=== PATIENT | female | born 1930 | race Caucasian/White ===

== ENCOUNTER → 2018-08-22 | Outpatient (CLI) | payer MEDICARE, OTHER ==
[2018-08-22 19:58] LABS: CALCIUM LEVEL 8.9 MG/DL (8.8-10.2); CREATININE FOR GFR 1.37 MG/DL (0.55-1.30); GLOMERULAR FILTRATION RATE 38.6 (>32); POTASSIUM SERUM 4.7 MEQ/L (3.5-5.1)
[2018-08-22 20:04] LABS: INR 1.7; PROTHROMBIN TIME 20.3 SECONDS (12.1-14.4)
== END ==
LOC: M ADAMS 13:52
DX: I48.1 Persistent atrial fibrillation (principal); N18.4 Chronic kidney disease, stage 4 (severe)

== ENCOUNTER → 2018-09-05 | Outpatient (REF) | payer MEDICARE, OTHER ==
[2018-09-05 17:30] LABS: INR 2.41; PROTHROMBIN TIME 26.1 SECONDS (11.8-14.0)
== END ==
LOC: M LABDRWAD 14:42
PROVIDERS: ATTEND Nurse Practitioner Family
DX: I48.1 Persistent atrial fibrillation (principal)